=== PATIENT | male | born 1980 | race Caucasian/White ===

== ENCOUNTER 2016-10-29 11:52 | Emergency (ER) | payer SELFPAY ==
[2016-10-29 11:57] VITALS: BP 146/51
--- NOTE | 2016-10-29 12:19 | ER Document Report ---
ED General - General Chief Complaint: Neck Problem Stated Complaint: POST OP PROBLEM Time Seen by Provider: 10/29/16 12:12 TRAVEL OUTSIDE OF THE [place] IN LAST 30 DAYS: No - HPI Patient complains to provider of: Discharge from recent neck surgery Associated symptoms: None Notes: Well-appearing man presents 1 month after spinal surgery. Patient had anterior approach disc decompression performed in [facility]. The lateral aspect of his anterior incision and some serosanguineous fluid returned. He contacted his surgeon recommended evaluation in the emergency department. Patient states he was taken some Percocet and got nauseous in the morning but denies any other symptoms. Denies any nausea at baseline. Denies fever, chills , cough, pain in the area, overlying cellulitic changes. Patient just wanted to get checked out. Patient is scheduled to follow-up with his neurosurgeon on Monday - Related Data Allergies/Adverse Reactions: No Known Allergies Allergy (Unverified 10/29/16 11:56) Past Medical History - Social History Smoking Status: Never Smoker Frequency of alcohol use: Rare Drug Abuse: None Family History: Arthritis, CAD, Hyperlipidemia, Hypertension, Malignancy Renal/ Medical History: Denies: Hx Peritoneal Dialysis Musculoskeltal Medical History: Reports Hx Arthritis, Reports Hx Musculoskeletal Deformity, Reports Hx Musculoskeletal Trauma Skin Medical History: Reports Hx Cellulitis Past Surgical History: Reports: Hx Orthopedic Surgery - back x2, metal removed from left knee, right index finger, and chest all re - Immunizations Immunizations up to date: Yes Hx Diphtheria, Pertussis, Tetanus Vaccination: Yes - 2012 Review of Systems - Review of Systems Constitutional: No symptoms reported EENT: No symptoms reported Cardiovascular: No symptoms reported Respiratory: No symptoms reported Gastrointestinal: No symptoms reported Genitourinary: No symptoms reported Male Genitourinary: No symptoms reported Musculoskeletal: No symptoms reported Skin: No symptoms reported Hematologic/Lymphatic: No symptoms reported Neurological/Psychological: No symptoms reported Physical Exam - Vital signs Vitals: Temp Pulse Resp BP Pulse Ox 97.7 F 77 16 146/51 H 98 10/29/16 11:56 10/29/16 11:56 10/29/16 11:56 10/29/16 11:56 10/29/16 11:56 Interpretation: Normal - General General appearance: Appears well, Alert - HEENT Head: Normocephalic, Atraumatic Eyes: Normal Pupils: PERRL Neck: Other - Healed surgical incision located just to the left side of critical thyroid cartilage. Overlying cellulitic changes small area on the most lateral aspect of serosanguineous discharge. No foul odor noted no purulent discharge nonpainful the patient - Respiratory Respiratory status: No respiratory distress Chest status: Nontender Breath sounds: Normal Chest palpation: Normal - Cardiovascular Rhythm: Regular Heart sounds: Normal auscultation Murmur: No - Abdominal Inspection: Normal Distension: No distension Bowel sounds: Normal Tenderness: Nontender Organomegaly: No organomegaly - Back Back: Normal, Nontender - Extremities General upper extremity: Normal inspection, Nontender, Normal color, Normal ROM , Normal temperature General lower extremity: Normal inspection, Nontender, Normal color, Normal ROM , Normal temperature, Normal weight bearing. No: Alejandro's sign - Neurological Neuro grossly intact: Yes Cognition: Normal Orientation: AAOx4 Precious Coma Scale Eye Opening: Spontaneous [place] Coma Scale Verbal: Oriented Precious Coma Scale Motor: Obeys Commands Precious Coma Scale Total: 15 Speech: Normal Motor strength normal: LUE, RUE, LLE, RLE Sensory: Normal - Psychological Associated symptoms: Normal affect, Normal mood - Skin Skin Temperature: Warm Skin Moisture: Dry Skin Color: Normal Course - Re-evaluation Re-evalutation: 10/29/16 12:19 Patient presents with some discharge from his recent surgical site. Patient has no concerning findings stable vital signs all within normal limits no constitutional symptoms. Express some serosanguineous discharge most likely seroma. No foul odor noted - Vital Signs Vital signs: Temp Pulse Resp BP Pulse Ox 97.7 F 77 16 146/51 H 98 10/29/16 11:56 10/29/16 11:56 10/29/16 11:56 10/29/16 11:56 10/29/16 11:56 Discharge - Discharge Clinical Impression: Abscess Cellulitis Qualifiers: Site of cellulitis: neck Qualified Code(s): L03.221 - Cellulitis of neck Condition: Good Disposition: HOME, SELF-CARE Instructions: Cellulitis ([facility]) Additional Instructions: Contact your surgeon on Monday in [place] to be seen in our office. Please be cautious of any fever chills or more purulent discharge Prescriptions: Cephalexin Monohydrate [Keflex 500 mg Capsule] 500 mg PO QID #28 capsule Metoclopramide HCl [Reglan 10 mg Tablet] 10 mg PO Q6H PRN #30 tablet PRN Reason: For Nausea/Vomiting Sulfamethoxazole/Trimethoprim [Bactrim 400-80 mg Tablet] 1 each PO BID #14 tablet
== END 2016-10-29 12:23 | disposition home or self-care (01) ==
LOC: ER 11:52
DX: L03.221 Cellulitis of neck (principal); L02.11 Cutaneous abscess of neck; M54.2 Cervicalgia; Z79.899 Other long term (current) drug therapy; Z98.890 Other specified postprocedural states
CPT/HCPCS: 99283

== ENCOUNTER 2019-04-14 02:34 | Emergency (ER) | payer SELFPAY ==
--- NOTE | 2019-04-14 04:42 | ER Document Report ---
ED General - General Chief Complaint: Post Surgical Bleeding Stated Complaint: FACIAL BLEEDING Time Seen by Provider: 04/14/19 03:49 Primary Care Provider: IFTIKHAR GHOSH MD [ACTIVE STAFF] - Follow up as needed KIM PUCKETT DO [Primary Care Provider] - Follow up as needed Mode of Arrival: Ambulatory Information source: Patient Notes: 39-year-old male presented to ED for complaint of bleeding from the site where surgeon removed a knot on 08 April. He states he traveled to [place] and on the way back he pulled the packing out and it is been bleeding since then. He states it was packed with iodoform on the and on the and he was supposed to follow-up with Dr. Ward on the . Patient is alert oriented respirations regular nonlabored speaking in full sentences. TRAVEL OUTSIDE OF THE [place] IN LAST 30 DAYS: No - HPI Onset: This evening Onset/Duration: Persistent Quality of pain: No pain Severity: None Pain Level: Denies Associated symptoms: Other - Bleeding from site of surgery starting this evening Exacerbated by: Denies Relieved by: Denies Similar symptoms previously: Yes Recently seen / treated by doctor: Yes - Related Data Allergies/Adverse Reactions: No Known Allergies Allergy (Unverified 10/29/16 11:56) Home Medications: warfarin. carvedilol. Spironolactone. Ramipril Past Medical History - General Information source: Patient - Social History Smoking Status: Never Smoker Chew tobacco use (# tins/day): No Frequency of alcohol use: Occasional Drug Abuse: None Family History: Arthritis, CAD, Hyperlipidemia, Hypertension, Malignancy Patient has suicidal ideation: No Patient has homicidal ideation: No - Past Medical History Cardiac Medical History: Reports: Other - Valvular repair Pulmonary Medical History: Reports: None EENT Medical History: Reports: None Neurological Medical History: Reports: None Endocrine Medical History: Reports: None Renal/ Medical History: Reports: None Malignancy Medical History: Reports None GI Medical History: Reports: None Musculoskeletal Medical History: Reports Hx Arthritis, Reports Hx Musculoskeletal Deformity, Reports Hx Musculoskeletal Trauma Skin Medical History: Reports Hx Cellulitis Psychiatric Medical History: Reports: None Traumatic Medical History: Reports: None Infectious Medical History: Reports: None Past Surgical History: Reports: Hx Cardiac Surgery - mechanical heart valve, Hx Orthopedic Surgery - back x2, metal removed from left knee, right index finger, and chest - Immunizations Immunizations up to date: Yes Hx Diphtheria, Pertussis, Tetanus Vaccination: Yes - 2017 Review of Systems - Review of Systems Constitutional: No symptoms reported EENT: No symptoms reported Cardiovascular: No symptoms reported Respiratory: No symptoms reported Gastrointestinal: No symptoms reported Genitourinary: No symptoms reported Male Genitourinary: No symptoms reported Musculoskeletal: No symptoms reported Skin: Other - Bleeding from surgical site left cheek Hematologic/Lymphatic: No symptoms reported Neurological/Psychological: No symptoms reported -: Yes All other systems reviewed and negative Physical Exam - Vital signs Vitals: Temp Pulse Resp BP Pulse Ox 97.3 F 75 20 153/90 H 98 04/14/19 02:42 04/14/19 02:42 04/14/19 02:42 04/14/19 02:42 04/14/19 02:42 Interpretation: Normal - General General appearance: Appears well, Alert - HEENT Head: Atraumatic, Open wounds - Open wound to left cheek bleeding Eyes: Normal Pupils: PERRL - Respiratory Respiratory status: No respiratory distress Chest status: Nontender Breath sounds: Normal Chest palpation: Normal - Cardiovascular Rhythm: Regular Heart sounds: Normal auscultation Murmur: No - Abdominal Inspection: Normal Distension: No distension Bowel sounds: Normal Tenderness: Nontender Organomegaly: No organomegaly - Back Back: Normal, Nontender - Extremities General upper extremity: Normal inspection, Nontender, Normal color, Normal ROM, Normal temperature General lower extremity: Normal inspection, Nontender, Normal color, Normal ROM, Normal temperature, Normal weight bearing. No: Alejandro's sign - Neurological Neuro grossly intact: Yes Cognition: Normal Orientation: AAOx4 Precious Coma Scale Eye Opening: Spontaneous [place] Coma Scale Verbal: Oriented [place] Coma Scale Motor: Obeys Commands [place] Coma Scale Total: 15 Speech: Normal Motor strength normal: LUE, RUE, LLE, RLE Sensory: Normal - Psychological Associated symptoms: Normal affect, Normal mood - Skin Skin Temperature: Warm Skin Moisture: Dry Skin Color: Normal Course - Re-evaluation Re-evalutation: 04/14/19 04:42 Wound to the left side of the face packed with 1/4 inch iodoform, direct pressure applied to the site, wound was redressed with 4 x 4 will recheck in a few minutes. 04/14/19 08:19 When patient was rechecked the blood had stopped. Patient was encouraged to not change the dressing or remove the dressing until he follows up with Dr. Ghosh. Patient verbalized understanding and agreement treatment plan patient was discharged home. - Vital Signs Vital signs: Temp Pulse Resp BP Pulse Ox 97.6 F 75 15 114/76 98 04/14/19 05:07 04/14/19 02:42 04/14/19 05:05 04/14/19 05:05 04/14/19 05:05 Discharge - Discharge Clinical Impression: bleeding from surgical site face Condition: Stable Disposition: HOME, SELF-CARE Additional Instructions: You were seen today for bleeding from your surgical site to the left side of your face. I have repacked the site with iodoform and placed a gauze on the site. These do not remove the dressing until you are seen by Dr. Ghosh. Return to the ED for any increase in bleeding or any other concerning symptoms. FOLLOW-UP CARE: If you have been referred to a physician for follow-up care, call the physicians office for an appointment as you were instructed or within the next two days. If you experience worsening or a significant change in your symptoms, notify the physician immediately or return to the Emergency Department at any time for re-evaluation. Forms: Elevated Blood Pressure Referrals: KIM PUCKETT DO [Primary Care Provider] - Follow up as needed IFTIKHAR GHOSH MD [ACTIVE STAFF] - Follow up as needed
[2019-04-14 05:19] VITALS: BP 114/76
== END 2019-04-14 05:19 | disposition home or self-care (01) ==
LOC: ER 02:34
DX: L76.22 Postprocedural hemorrhage of skin and subcutaneous tissue following other procedure (principal)
CPT/HCPCS: 99283; A6266